=== PATIENT | female | born 1990 | race Two or more races ===

== ENCOUNTER 2018-07-25 02:34 | Emergency (ER) | payer OTHER ==
[~2018-07-25] VITALS: Ht 162.6 cm; Wt 61.7 kg
[2018-07-25] MEDS ORDERED: [UNRECOGNIZED DRUG - OTHER] (02:47)
--- NOTE | 2018-07-25 02:50 | NUR ---
DR TAMEKA MORRISON MD AT BEDSIDE FOR MSE.
[2018-07-25] MEDS ORDERED: ONDANSETRON ODT 4 MG TAB.RAPDIS SL ONE (03:00)
[2018-07-25] MEDS ORDERED: SUMATRIPTAN SUCCINATE 6 MG/0.5 ML VIAL SQ ONE ×2 (03:00→03:20)
[2018-07-25] MEDS ORDERED: HYDROMORPHONE 1 MG/1 ML DISP.SYRIN IV ONE (03:00)
--- NOTE | 2018-07-25 03:03 | NUR ---
PT TAKEN TO RADIOLOGY FOR CT. NO DISTRESS NOTED.
[2018-07-25] MEDS ORDERED: ONDANSETRON ODT 4 MG TAB.RAPDIS ONE (03:20)
[2018-07-25] MEDS ORDERED: HYDROMORPHONE 2 MG/1 ML DISP.SYRIN ONE (03:21)
--- NOTE | 2018-07-25 03:52 | NUR ---
Patient discharged to home in stable conditon. Written and verbal after care instructions given. Patient verbalizes understanding of instructions. IV removed w/ catheter intact. pressure applied, no bleeding noted at site. Pt took all personal belongings, and was instructed not to drive.
[2018-07-25 03:54] VITALS: BP 111/72
== END 2018-07-25 03:55 | disposition home or self-care (01) ==
LOC: ER 02:40
DX: R51 Headache (principal); Z86.69 Personal history of other diseases of the nervous system and sense organs; Z88.5 Allergy status to narcotic agent; Z88.8 Allergy status to other drugs, medicaments and biological substances
CPT/HCPCS: 70450; A4663; J1170; J3030; Q0162